=== PATIENT | female | born 1995 | race Caucasian/White ===

== ENCOUNTER 2019-02-10 19:44 | Emergency (ER) | payer OTHER, SELFPAY ==
[2019-02-10 20:05] LABS: Urine Blood 2+ (NEG); Urine Glucose NEGATIVE (NEG); Urine Protein NEGATIVE (NEG); Urine pH 7.5 (5.0-7.0)
[2019-02-10 20:30] LABS: Absolute Lymphocytes (CBC) 2.5 K/uL (0.7-4.9); Basophils % 0.5 % (0-1.3); Hematocrit 40.4 % (36.0-45.0); MPV 9.3 fL (7.6-11.3); RBC Red Blood Cell Count 4.61 M/uL (3.86-4.86)
[2019-02-10] MEDS ORDERED: ONDANSETRON 4 MG/2 ML VIAL ONE (20:32)
[2019-02-10 20:46] LABS: ALT/SGPT 37 U/L (12-78); AST/SGOT 27 U/L (15-37); Albumin 3.9 g/dL (3.4-5.0); Alkaline Phosphatase 88 U/L (45-117); BUN Blood Urea Nitrogen 8 mg/dL (7-18); Bicarbonate 25 mmol/L (21-32); Bilirubin Direct 0.2 mg/dL (0-0.2); Bilirubin Total 0.9 mg/dL (0.2-1.0); Glucose Level 102 mg/dL (74-106); Lipase 68 U/L (73-393); Potassium 3.8 mmol/L (3.5-5.1); Protein, Total 7.4 g/dL (6.4-8.2); Sodium Level 138 mmol/L (136-145)
[2019-02-10] MEDS ORDERED: CEFTRIAXONE/SWI 1gm 1 GM/10 ML SYR ONE (22:41)
[2019-02-10 22:50] LABS: Urine Bacteria 20-50 /HPF (<20); Urine Culture Reflex Order REFLEXED; Urine RBC <5 /HPF (NONE SEEN)
--- NOTE | 2019-02-10 23:20 | ER ---
Nurse's Notes [facility] Name: Mirlande Morrow Age: 24 yrs Sex: Female : 1995 Arrival Date: 02/10/2019 Time: 19:44 Bed 14 Private MD: Diagnosis: Urinary tract infection, site not specified Presentation: 02/10 19:55 Presenting complaint: Patient states: RUQ sharp pain that started this morning. Pain is 7/10 intermittently. Pt also stated she developed vaginal bleed this morning but LMP was a week ago. Transition of care: patient was not received from another setting of care. Onset of symptoms was February 10, 2019. Risk Assessment: Do you want to hurt yourself or someone else? Patient reports no desire to harm self or others. Initial Sepsis Screen: Does the patient meet any 2 criteria? No. Patient's initial sepsis screen is negative. Does the patient have a suspected source of infection? Yes: Acute abdominal pain. Care prior to arrival: None. 19:55 Method Of Arrival: Ambulatory 19:55 Acuity: JULIO CESAR 3 Triage Assessment: 20:01 GI: Reports upper abdominal pain, nausea. 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 - Social history:: Smoking status: Patient uses tobacco products. - Ebola Screening: : Patient negative for fever greater than or equal to 101.5 degrees Fahrenheit, and additional compatible Ebola Virus Disease symptoms Patient denies exposure to infectious person. Screenin:59 Abuse screen: Denies threats or abuse. Denies injuries from another. Nutritional screening: No deficits noted. Tuberculosis screening: No symptoms or risk factors identified. Fall Risk None identified. Assessment: 19:59 General: Appears in no apparent distress. Behavior is calm, cooperative, appropriate for age. Pain: Complains of pain in right upper quadrant Pain radiates to back Pain currently is 7 out of 10 on a pain scale. Quality of pain is described as sharp, Pain began this morning. Neuro: Level of Consciousness is awake, alert, obeys commands, Oriented to person, place, time, situation, Appropriate for age. Cardiovascular: Heart tones S1 S2. Respiratory: Airway is patent Respiratory effort is even, unlabored, Respiratory pattern is regular, symmetrical, Breath sounds are clear bilaterally. GI: Abdomen is flat, non-distended, Abd is soft and non tender X 4 quads. Reports nausea. : No signs and/or symptoms were reported regarding the genitourinary system. EENT: No signs and/or symptoms were reported regarding the EENT system. Derm: Skin is intact, is healthy with good turgor, Skin is pink, warm \T\ dry. normal. Musculoskeletal: Circulation, motion, and sensation intact. 21:27 Reassessment: Patient appears in no apparent distress at this time. No changes from previously documented assessment. Patient and/or family updated on plan of care and expected duration. Pain level reassessed. Patient is alert, oriented x 3, equal unlabored respirations, skin warm/dry/pink. Patient states feeling better. Patient states symptoms have improved. 22:34 Reassessment: Patient appears in no apparent distress at this time. No changes from previously documented assessment. Patient and/or family updated on plan of care and expected duration. Pain level reassessed. Patient is alert, oriented x 3, equal unlabored respirations, skin warm/dry/pink. Patient denies pain at this time. Patient states feeling better. Patient states symptoms have improved. 23:28 Reassessment: Patient appears in no apparent distress at this time. No changes from previously documented assessment. Patient and/or family updated on plan of care and expected duration. Pain level reassessed. Patient is alert, oriented x 3, equal unlabored respirations, skin warm/dry/pink. Patient denies pain at this time. Patient states feeling better. Patient states symptoms have improved. Vital Signs: 19:57 BP 137 / 92; Pulse 84; Resp 18; Temp 98.2; Pulse Ox 100% ; Weight 81.65 kg; Height 5 wh ft. 7 in. (170.18 cm); 21:25 BP 130 / 96; Pulse 85; Resp 18; Pulse Ox 98% on R/A; wh 22:34 BP 124 / 87; Pulse 74; Resp 18; Pulse Ox 100% on R/A; 23:28 BP 129 / 88; Pulse 74; Resp 18; Pulse Ox 99% on R/A; 19:57 Body Mass Index 28.19 (81.65 kg, 170.18 cm) ED Course: 19:44 Patient arrived in ED. ds1 19:51 Pradeep Sloan PA is PHCP. cp 19:51 Pradeep Gamino MD is Attending Physician. cp 19:55 Steph Haque is Primary Nurse. 19:57 Triage completed. 19:59 Patient has correct armband on for positive identification. Placed in gown. Bed in low wh position. Call light in reach. Side rails up X 1. Pulse ox on. NIBP on. 20:01 Arm band placed on right wrist. 20:10 Inserted saline lock: 20 gauge in right antecubital area, using aseptic technique. Blood collected. 21:34 CT Abd/Pelvis - IV Contrast Only In Process Unspecified. EDKY 23:27 No provider procedures requiring assistance completed. IV discontinued, intact, bleeding controlled, No redness/swelling at site. Administered Medications: 20:34 Drug: Zofran 4 mg Route: IVP; Site: right antecubital; 23:26 Follow up: Response: No adverse reaction; Nausea is decreased 22:43 Drug: Rocephin 1 grams Route: IV; Rate: bolus; Site: right antecubital; 23:26 Follow up: Response: No adverse reaction; IV Status: Completed infusion Outcome: 23:19 Discharge ordered by . 23:27 Discharged to home ambulatory. 23:27 Condition: stable 23:27 Discharge instructions given to patient, Instructed on discharge instructions, follow up and referral plans. medication usage, POC UTI Demonstrated understanding of instructions, follow-up care, medications, POC Prescriptions given X 2. 23:29 Patient left the ED. Addendum: 02/14/2019 07:49 Addendum: Culture Results: Positive urine culture. No further action required. Bacteria i w sensitive to prescribed antibiotic. Signatures: Dispatcher [employer] EDKY Patricia Seo ds1 Marifer Maldonado RN RN iw Pradeep Sloan PA PA cp [place], Winsy Corrections: (The following items were deleted from the chart) 02/10 20:01 19:59 GI: Abdomen is flat, non-distended, Abd is soft and non tender X [address] [facility]
--- NOTE | 2019-02-10 23:21 | EDPHYS ---
Physician Documentation [facility] Name: Mirlande Morrow Age: 24 yrs Sex: Female : 1995 Arrival Date: 02/10/2019 Time: 19:44 Bed 14 Private MD: ED Physician Pradeep Gamino HPI: 02/10 20:10 This 24 yrs old Female presents to ER via Ambulatory with complaints of R cp Side Pain, Nausea. 20:10 The patient presents with abdominal pain in the right upper quadrant. cp 20:10 Onset: The symptoms/episode began/occurred today. The symptoms radiate to right back. cp Associated signs and symptoms: Pertinent negatives: nausea and vomiting, anorexia, diarrhea, fever, vomiting. The symptoms are described as constant. Severity of pain: in the emergency department the pain is unchanged despite home interventions. 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 - Social history:: Smoking status: Patient uses tobacco products. - Ebola Screening: : Patient negative for fever greater than or equal to 101.5 degrees Fahrenheit, and additional compatible Ebola Virus Disease symptoms Patient denies exposure to infectious person. ROS: 20:15 Constitutional: Negative for body aches, chills, fever, poor PO intake. cp 20:15 Eyes: Negative for injury, pain, redness, and discharge. cp 20:15 Cardiovascular: Negative for chest pain, palpitations. 20:15 Respiratory: Negative for cough, shortness of breath, wheezing. 20:15 Abdomen/GI: Positive for abdominal pain, Negative for vomiting, diarrhea, constipation. 20:15 : Positive for flank pain, Negative for urinary symptoms. 20:15 Skin: Negative for rash. 20:15 Neuro: Negative for dizziness, headache, weakness. 20:15 All other systems are negative. Exam: 20:30 Constitutional: The patient appears in no acute distress, alert, awake, non-toxic, well cp developed, well nourished. 20:30 Head/Face: Normocephalic, atraumatic. cp 20:30 Eyes: Periorbital structures: appear normal, Conjunctiva: normal, no exudate, no injection, Sclera: no appreciated abnormality, Lids and lashes: appear normal, bilaterally. 20:30 ENT: External ear(s): are unremarkable, Nose: is normal, Mouth: Lips: moist, Oral mucosa: pink and intact, moist, Posterior pharynx: is normal, airway is patent, no erythema, no exudate. 20:30 Chest/axilla: Inspection: normal, Palpation: is normal, no crepitus, no tenderness. 20:30 Cardiovascular: Rate: normal, Rhythm: regular. 20:30 Respiratory: the patient does not display signs of respiratory distress, Respirations: normal, no use of accessory muscles, no retractions, no splinting, no tachypnea, labored breathing, is not present, Breath sounds: are clear throughout, no decreased breath sounds, no stridor, no wheezing. 20:30 Abdomen/GI: Inspection: abdomen appears normal, Bowel sounds: active, all quadrants, Palpation: soft, in all quadrants, mild abdominal tenderness, in the right upper quadrant, rebound tenderness, is not appreciated, voluntary guarding, is not appreciated. 20:30 Back: pain, that is mild, of the right mid back, ROM is normal. 20:30 Skin: no rash present. Vital Signs: 19:57 BP 137 / 92; Pulse 84; Resp 18; Temp 98.2; Pulse Ox 100% ; Weight 81.65 kg; Height 5 wh ft. 7 in. (170.18 cm); 21:25 BP 130 / 96; Pulse 85; Resp 18; Pulse Ox 98% on R/A; wh 22:34 BP 124 / 87; Pulse 74; Resp 18; Pulse Ox 100% on R/A; wh 23:28 BP 129 / 88; Pulse 74; Resp 18; Pulse Ox 99% on R/A; wh 19:57 Body Mass Index 28.19 (81.65 kg, 170.18 cm) wh MDM: 19:54 Patient medically screened. cp 20:00 Differential diagnosis: cholecystitis, Cholelithiasis, gastritis, non-specific abd cp pain, Ureterolithiasis, urinary tract infection. 23:18 Data reviewed: vital signs, nurses notes, lab test result(s), radiologic studies, CT cp scan. Counseling: I had a detailed discussion with the patient and/or guardian regarding: the historical points, exam findings, and any diagnostic results supporting the discharge/admit diagnosis, lab results, radiology results, to return to the emergency department if symptoms worsen or persist or if there are any questions or concerns that arise at home. Response to treatment: the patient's symptoms have markedly improved after treatment, and as a result, I will discharge patient. 02/10 20:02 Order name: Urine Dipstick--Ancillary (enter results) [facility] 02/10 20:02 Order name: Urine --Ancillary (enter results) [facility] 02/10 20:06 Order name: Urine --Ancillary [facility] 02/10 20:06 Order name: Urine Dipstick-Ancillary [facility] 02/10 20:13 Order name: Basic Metabolic Panel; Complete Time: 22:01 02/10 22:03 Interpretation: Reviewed. 02/10 20:13 Order name: CBC with Diff; Complete Time: 22: 02/10 22:03 Interpretation: Normal except: WBC 15.5; ESTHER% 76.6; NEUT A 11.9. 02/10 20:13 Order name: Creatinine for Radiology; Complete Time: 22: 02/10 20:13 Order name: Hepatic Function; Complete Time: 22:01 02/10 20:13 Order name: Lipase; Complete Time: 22:01 02/10 22:03 Interpretation: LIP 68; Reviewed. 02/10 20:30 Order name: CT Abd/Pelvis - IV Contrast Only 02/10 22:04 Order name: Urine Microscopic Only; Complete Time: 23:17 02/10 23:17 Interpretation: Normal except: UWBC 5-10; UBACT 20-50. 02/10 22:39 Order name: Urine Culture 02/10 20:13 Order name: IV Saline Lock; Complete Time: 20:13 02/10 20:13 Order name: Labs collected and sent; Complete Time: 20:13 Administered Medications: 20:34 Drug: Zofran 4 mg Route: IVP; Site: right antecubital; 23:26 Follow up: Response: No adverse reaction; Nausea is decreased 22:43 Drug: Rocephin 1 grams Route: IV; Rate: bolus; Site: right antecubital; 23:26 Follow up: Response: No adverse reaction; IV Status: Completed infusion Disposition: 02/10/19 23:19 Discharged to Home. Impression: Urinary tract infection, site not specified. - Condition is Stable. - Discharge Instructions: Urinary Tract Infection, Adult. - Prescriptions for Zofran 4 mg Oral Tablet - take 1 tablet by ORAL route every 12 hours As needed; 20 tablet. Bactrim DS 800- 160 mg Oral Tablet - take 1 tablet by ORAL route every 12 hours for 7 days; 14 tablet. - Medication Reconciliation Form, Thank You Letter, Antibiotic Education, Prescription Opioid Use form. - Follow up: Private Physician; When: 2 - 3 days; Reason: Recheck today's complaints. - Problem is new. - Symptoms have improved. Addendum: 02/12/2019 07:54 Co-signature as Attending Physician, Pradeep Gamino MD I agree with the assessment and c hull plan of care. Signatures: Dispatcher [employer] EDNJ Pradeep Gamino MD MD cha Page, Corey, PA PA cp Habalo, Winsy Corrections: (The following items were deleted from the chart) 02/10 23:29 23:19 02/10/2019 23:19 Discharged to Home. Impression: Urinary tract infection, site wh not specified. Condition is Stable. Forms are Medication Reconciliation Form, Thank You Letter, Antibiotic Education, Prescription Opioid Use. Follow up: Private Physician; When: 2 - 3 days; Reason: Recheck today's complaints. Problem is new. Symptoms have improved. cp
[2019-02-10 23:52] VITALS: TEMP 98.2
[2019-02-10 23:56] VITALS: BP 129/88; O2SAT 99
--- NOTE | 2019-02-12 12:47 | RAD REPORT ---
EXAM DESCRIPTION: Abdomen Pelvis W Contrast CLINICAL HISTORY: ABD PAIN TECHNIQUE: Contiguous axial images obtained through the abdomen and pelvis following the uneventful administration of IV contrast. Coronal and sagittal reformatted images were provided. This exam was performed according to our departmental dose-optimization program, which includes autom ated exposure control, adjustment of the mA and/or kV according to patient size and/or use of iterati ve reconstruction technique. COMPARISON: None available for comparison. FINDINGS: Lung bases: Clear Liver: Unremarkable Gallbladder and biliary system: Unremarkable Pancreas: Unremarkable Spleen: Unremarkable Adrenals: Unremarkable Kidneys: Normal renal cortical enhancement. No calculi. Minimal fullness of the right renal collectin g system with urothelial thickening. Bowel: No obstruction. No appreciable mucosal thickening. Appendix: Normal caliber appendix. No findings to suggest acute appendicitis. Urinary bladder: Unremarkable Reproductive: 2 cm right ovarian cyst. The uterus and left ovary are unremarkable as visualized. Lymph nodes: No pathologically enlarged lymph nodes. Peritoneum: No focal fluid collection. No free air. Vessels: No abdominal aortic aneurysm. Abdominal wall: Small fat-containing periumbilical hernia. Bones: Unremarkable IMPRESSION: 1. Findings suggestive of right-sided urinary tract infection. 2. 2.0 cm benign appearing right ovarian cyst. No follow-up imaging is recommended. Reference: J Am Harper Radiol 2013;10:[id number] 3. Other findings as above. Electronically signed by: Arline Stevenson MD 02/10/2019 10:14 PM CDT Due to temporary technical issues with the PACS/Fluency reporting system, reports are being signed by the in house radiologist as a courtesy to ensure prompt reporting. The interpreting radiologist is f ully responsible for the content of the report.
== END 2019-02-10 23:29 | disposition home or self-care (01) ==
LOC: ER 19:44
DX: N39.0 Urinary tract infection, site not specified (principal); F90.9 Attention-deficit hyperactivity disorder, unspecified type; Z72.0 Tobacco use
CPT/HCPCS: 36415; 74177; 80048; 80076; 81003; 81015; 81025; 83690; 85025; 87077; 87086; 87088; 87186; 96365; 96375; 99284; J0696; J2405; Q9967